=== PATIENT | female | born 1960 | race Caucasian/White ===

== ENCOUNTER 2017-02-12 09:04 | Emergency (ER) | payer OTHER ==
[2017-02-12 09:19] VITALS: TEMP 98.6; BMI 25.8
--- NOTE | 2017-02-12 09:27 | PDOC ---
History of Present Illness - General History Source: Patient Exam Limitations: No Limitations - History of Present Illness Initial Comments: 02/12/17 10:22 The patient is a 56 year old female with a significant PMH of asthma, non- insulin dependent diabetes, HTN, hyperlipidemia who presents to the emergency department with non-resolving right foot pain beginning approximately 1 month ago. The patient describes her right foot pain as a continuous pain initially starting on the dorsal surface which has since radiated to the plantar surface and ankle with associated swelling. She notes going to the [facility] for a work -up and notes receiving and X-ray which was negative as well as being prescribed Gabapentin to some relief. The patient also reports having her right foot wrapped by the set [facility]. The patient notes that she is noncompliant with her Metformin medication. She reports that despite going to the [facility] about 3 times this past month, her right foot pain has not resolved. The patient denies chest pain, shortness of breath, headache and dizziness. Denies fever, chills, nausea, vomit, diarrhea and constipation. Denies dysuria, frequency, urgency and hematuria. Allergies: NKA Past surgical history: None reported. Social history: No reported cigarette, alcohol, or drug use PCP: Dr. Colbert Recreation Attendant: Wilma Gant [ ] <Spike Evans - Last Filed: 02/12/17 10:25> <Venancio Piper - Last Filed: 02/12/17 13:11> - General Chief Complaint: Pain Stated Complaint: LEG PAIN Past History <Spike Evans - Last Filed: 02/12/17 10:25> - Past Medical History Anemia: No Asthma: Yes (NO RECENT ATTACK) Cancer: No Cardiac Disorders: No CVA: No COPD: No CHF: No Dementia: No Diabetes: Yes (DIET CONTROL) GI Disorders: Yes (CONSTIPATION) Disorders: No HTN: Yes Hypercholesterolemia: Yes Liver Disease: No Seizures: No Thyroid Disease: No - Surgical History Abdominal Surgery: Yes (LIPOSUCTION) Appendectomy: No Cardiac Surgery: No Cholecystectomy: No Lung Surgery: No Neurologic Surgery: No Orthopedic Surgery: No - Suicide/Smoking/Psychosocial Hx Smoking History: Never smoked Have you smoked in the past 12 months: No Information on smoking cessation initiated: No Hx Alcohol Use: No Drug/Substance Use Hx: No Substance Use Type: None Hx Substance Use Treatment: No <Venancio Piper - Last Filed: 02/12/17 13:11> - Past Medical History Allergies/Adverse Reactions: Allergies Allergy/AdvReac Type Severity Reaction Status Date / Time No Known Allergies Allergy Verified 02/12/17 09:19 Home Medications: Ambulatory Orders Hydrochlorothiazide [Hctz -] 25 mg PO DAILY 03/14/12 Simvastatin [Zocor -] 20 mg PO HS 03/14/12 Enalapril Maleate [Vasotec -] 2.5 mg PO DAILY 01/25/13 Albuterol Sulfate Inhaler - [Ventolin Hfa Inhaler -] 2 inh PO Q4H PRN 10/21/14 Aspirin [ASA -] 81 mg PO DAILY 10/21/14 Loperamide HCl [Loperamide] 2 mg PO TID PRN #30 capsule 10/21/14 Ondansetron [Zofran Odt -] 4 mg SL TID #21 od.tablet 02/12/17 Oxycodone HCl/Acetaminophen [Percocet 5-325 mg Tablet] 1 - 2 tab PO Q6H #20 tab MDD 6 02/12/17 Review of Systems - Review of Systems Able to Perform ROS?: Yes Comments:: 02/12/17 10:22 GENERAL/CONSTITUTIONAL: No fever or chills. No weakness. HEAD, EYES, EARS, NOSE AND THROAT: No change in vision. No ear pain or discharge. No sore throat. CARDIOVASCULAR: No chest pain or shortness of breath. RESPIRATORY: No cough, wheezing, or hemoptysis. GASTROINTESTINAL: No nausea, vomiting, diarrhea or constipation. GENITOURINARY: No dysuria, frequency, or change in urination. MUSCULOSKELETAL: (+) Right foot pain. No neck or back pain. SKIN: No rash NEUROLOGIC: No headache, vertigo, loss of consciousness, or change in strength/ sensation. ENDOCRINE: No increased thirst. No abnormal weight change. HEMATOLOGIC/LYMPHATIC: No anemia, easy bleeding, or history of blood clots. ALLERGIC/IMMUNOLOGIC: No hives or skin allergy. <Spike Evans - Last Filed: 02/12/17 10:25> *Physical Exam - Vital Signs Last Vital Signs Temp Pulse Resp BP Pulse Ox 98.6 F 97 H 18 124/82 100 02/12/17 09:15 02/12/17 09:15 02/12/17 09:15 02/12/17 09:15 02/12/17 09:15 - Physical Exam Comments: 02/12/17 10:22 GENERAL: Awake, alert, and fully oriented, in no acute distress HEAD: No signs of trauma EYES: PERRLA, EOMI, sclera anicteric, conjunctiva clear ENT: Auricles normal inspection, hearing grossly normal, nares patent, oropharynx clear without exudates. Moist mucosa NECK: Normal ROM, supple, no lymphadenopathy, JVD, or masses LUNGS: Breath sounds equal, clear to auscultation bilaterally. No wheezes, and no crackles HEART: Regular rate and rhythm, normal S1 and S2, no murmurs, rubs or gallops ABDOMEN: Soft, nontender, normoactive bowel sounds. No guarding, no rebound. No masses EXTREMITIES: (+) No warmth, redness or inflammation in RLE. Good capillary refill. Did not unwrap right foot. Normal range of motion, no edema. No clubbing or cyanosis. No cords, erythema, or tenderness NEUROLOGICAL: Cranial nerves II through XII grossly intact. Normal speech, normal gait SKIN: Warm, Dry, normal turgor, no rashes or lesions noted. <Spike Evans - Last Filed: 02/12/17 10:25> - Vital Signs Last Vital Signs Temp Pulse Resp BP Pulse Ox 98.6 F 97 H 18 124/82 100 02/12/17 09:15 02/12/17 09:15 02/12/17 09:15 02/12/17 09:15 02/12/17 09:15 <Venancio Piper - Last Filed: 02/12/17 13:11> ED Treatment Course - LABORATORY CBC & Chemistry Diagram: 02/12/17 10:16 02/12/17 10:16 <Venancio Piper - Last Filed: 02/12/17 13:11> *DC/Admit/Observation/Transfer - Attestations Scribe Attestion: 02/12/17 10:22 Documentation prepared by Spike Evans, acting as emergency medical tech for Venancio Piper DO. <Spike Evans - Last Filed: 02/12/17 10:25> - Discharge Dispostion Admit: No - Attestations Physician Attestion: 02/12/17 09:27 I, Dr. Venancio Piper, attest that this document has been prepared under my direction and personally reviewed by me in its entirety. I further attest, that it accurately reflects all work, treatment, procedures and medical decision -making performed by me. <Venancio Piper - Last Filed: 02/12/17 13:11> Diagnosis at time of Disposition: Right foot pain - Discharge Dispostion Disposition: HOME Condition at time of disposition: Good - Prescriptions Prescriptions: Ondansetron [Zofran Odt -] 4 mg SL TID #21 od.tablet Oxycodone HCl/Acetaminophen [Percocet 5-325 mg Tablet] 1 - 2 tab PO Q6H #20 tab MDD 6 - Patient Instructions Printed Discharge Instructions: DI for Foot Pain Additional Instructions: [place]- Follow up with Rheumatology (Dr. Xiao). Keep your appointments with the [facility]. You can use the Zofran for Nausea from the Percocet (for pain) take them only if you absolutely have to. Best- Dr. Venancio Piper
[2017-02-12] MEDS ORDERED: ONDANSETRON *ODT* 4 MG TABLET SL ONE (09:52)
[2017-02-12] MEDS ORDERED: ONDANSETRON *ODT* 4 MG TABLET ONE (10:16)
[2017-02-12 10:52] LABS: BASO # 0.1 # (0.1-1); BASO % 0.5 % (0-2.0); EOS # 0.1 # (0-4.5); EOS % 0.6 % (0-4.5); LYMPH # 1.3 (8-40); MCH 23.1 pg (25.7-33.7); MCHC 32.8 g/dl (32.0-36.0); MEAN CELL VOLUME 70.5 fl (80-96); MEAN PLT VOLUME 7.5 fl (7.5-11.1); MONO # 0.8 # (3.8-10.2); NEUT # 8.5 # (42.8-82.8); NEUT % 78.6 % (42.8-82.8); PLATELET COUNT 386 K/MM3 (134-434); RDW 13.5 % (11.6-15.6); WHITE BLOOD COUNT 10.8 K/mm3 (4.0-10.0)
[2017-02-12 11:17] LABS: ALBUMIN 3.7 g/dl (3.4-5.0); ANION GAP 9 (8-16); BILIRUBIN,TOTAL 0.4 mg/dL (0.2-1.0); CO2 32 mmol/L (21-32); CREATININE 0.7 mg/dL (0.55-1.02); GLUCOSE,RANDOM 124 mg/dL (74-106); SGOT/AST 17 U/L (15-37); SGPT/ALT 28 U/L (12-78); TOT PROT 8.3 g/dl (6.4-8.2)
[2017-02-12 11:18] LABS: ALK PHOS 92 U/L (45-117)
[2017-02-12 12:59] LABS: ERYTHROCYTE SEDIMENTATION RATE 50 mm/hr (0-30)
[2017-02-12 13:24] VITALS: BP 128/74; PULSE 87
== END 2017-02-12 13:24 | disposition home or self-care (01) ==
LOC: JER 09:04
DX: M79.671 Pain in right foot (principal); I10 Essential (primary) hypertension; E11.9 Type 2 diabetes mellitus without complications; E78.5 Hyperlipidemia, unspecified; J45.909 Unspecified asthma, uncomplicated
CPT/HCPCS: 36415; 80053; 84550; 85025; 85651; 99283-25

== ENCOUNTER 2021-08-31 09:43 | Emergency (ER) | payer OTHER ==
[2021-08-31 10:02] VITALS: BP 120/79; TEMP 98; BMI 27.8
[2021-08-31] MEDS ORDERED: BEBTELOVIMAB (EUA) 175 MG/2 ML VIAL IVPUSH ONE (10:23)
[2021-08-31 14:36] VITALS: PULSE 79
== END 2021-08-31 14:37 | disposition home or self-care (01) ==
LOC: JER 09:43
PROC: 3E033GC Introduction of Other Therapeutic Substance into Peripheral Vein, Percutaneous Approach (ICD-10-PCS; principal; 2021-08-31)
DX: U07.1 COVID-19 (principal)
CPT/HCPCS: 96374; 99284-25; M0222; Q0222

== ENCOUNTER 2023-09-25 04:17 | Day surgery (SDC) | payer OTHER ==
[2023-09-22 10:21] VITALS: BMI 27.9
[2023-09-25] MEDS ORDERED: ONDANSETRON 4 MG/2 ML VIAL ONE (12:42)
[2023-09-25] MEDS ORDERED: MIDAZOLAM HCL 2 MG/2 ML SINGLE DOSE VIAL ONE (12:42)
[2023-09-25 13:44] VITALS: RESP 18
[2023-09-25 17:49] VITALS: BP 150/88; PULSE 74; TEMP 97.7
== END 2023-09-25 15:53 | disposition home or self-care (01) ==
LOC: JASU-SURG 04:17
PROVIDERS: ATTEND Urology
PROC: 0TF6XZZ Fragmentation in Right Ureter, External Approach (ICD-10-PCS; principal; 2023-09-25 13:00)
DX: N20.0 Calculus of kidney (principal)